=== PATIENT | female | born 1960 | race Two or more races ===

== ENCOUNTER 2020-10-27 14:40 | Outpatient (CLI) | payer OTHER | END 2020-10-27 14:41 | disposition home or self-care (01) | LOC: MAMO-SONO 14:40 | PROVIDERS: ATTEND Obstetrics & Gynecology Gynecology | DX: N64.59 Other signs and symptoms in breast (principal); Z12.31 Encounter for screening mammogram for malignant neoplasm of breast; Z87.898 Personal history of other specified conditions; N86 Erosion and ectropion of cervix uteri; N64.4 Mastodynia ==

== ENCOUNTER 2021-01-03 14:43 | Outpatient (CLI) | payer OTHER | END 2021-01-03 14:48 | disposition home or self-care (01) | LOC: NUCLEAR 14:43 | PROVIDERS: ATTEND Obstetrics & Gynecology Gynecology | DX: M81.0 Age-related osteoporosis without current pathological fracture (principal); M89.9 Disorder of bone, unspecified ==

== ENCOUNTER → 2021-01-03 | Outpatient (CLI) | payer OTHER | END | disposition home or self-care (01) | LOC: NUCLEAR 14:00 → RAD 14:11 | PROVIDERS: ATTEND Obstetrics & Gynecology Gynecology | DX: R07.89 Other chest pain (principal) ==

== ENCOUNTER 2021-04-26 13:47 | Outpatient (CLI) | payer OTHER | END 2021-04-26 13:55 | disposition home or self-care (01) | LOC: RAD 13:47 | PROVIDERS: ATTEND Obstetrics & Gynecology Gynecology | DX: R07.89 Other chest pain (principal); E04.1 Nontoxic single thyroid nodule ==

== ENCOUNTER 2021-08-08 11:55 | Outpatient (CLI) | payer OTHER | END 2021-08-08 11:56 | disposition home or self-care (01) | LOC: RAD 11:55 | DX: M65.232 Calcific tendinitis, left forearm (principal); R22.32 Localized swelling, mass and lump, left upper limb; M54.50 Low back pain, unspecified; M17.0 Bilateral primary osteoarthritis of knee ==

== ENCOUNTER 2021-08-21 13:45 | Outpatient (CLI) | payer OTHER | END 2021-08-21 13:47 | disposition home or self-care (01) | LOC: MRI 13:45 | PROVIDERS: ATTEND Psychiatry & Neurology Neurology | DX: R42 Dizziness and giddiness (principal) | CPT/HCPCS: 70551 ==

== ENCOUNTER 2021-11-22 12:12 | Outpatient (CLI) | payer OTHER | END 2021-11-27 15:06 | disposition home or self-care (01) | LOC: MRI 12:12 | PROVIDERS: ATTEND Obstetrics & Gynecology Gynecology | DX: Z12.31 Encounter for screening mammogram for malignant neoplasm of breast (principal); N64.4 Mastodynia ==

== ENCOUNTER 2022-01-15 08:06 | Outpatient (CLI) | payer OTHER | END 2022-01-15 09:00 | disposition home or self-care (01) | LOC: RAD 08:06 | PROVIDERS: ATTEND Obstetrics & Gynecology Gynecology | DX: R07.9 Chest pain, unspecified (principal) ==

== ENCOUNTER 2022-05-08 12:20 | Outpatient (CLI) | payer OTHER | END 2022-05-08 13:00 | disposition home or self-care (01) | LOC: RAD 12:20 | PROVIDERS: ATTEND Obstetrics & Gynecology Gynecology | DX: R07.9 Chest pain, unspecified (principal) ==

== ENCOUNTER 2022-07-02 14:00 | Outpatient (CLI) | payer OTHER | END 2022-07-02 14:05 | disposition home or self-care (01) | LOC: SONOGRAMA 14:00 | PROVIDERS: ATTEND Obstetrics & Gynecology Gynecology | DX: R10.2 Pelvic and perineal pain (principal) ==

== ENCOUNTER → 2022-07-26 | Outpatient (CLI) | payer OTHER | END | disposition home or self-care (01) | LOC: SONOGRAMA 14:13 | PROVIDERS: ATTEND Obstetrics & Gynecology Gynecology | DX: E04.1 Nontoxic single thyroid nodule (principal) ==

== ENCOUNTER 2022-11-27 12:58 | Outpatient (CLI) | payer OTHER | END 2022-11-29 11:37 | disposition home or self-care (01) | LOC: MAMO-SONO 12:58 | PROVIDERS: ATTEND Obstetrics & Gynecology Gynecology | DX: N64.59 Other signs and symptoms in breast (principal); N63.0 Unspecified lump in unspecified breast; Z12.31 Encounter for screening mammogram for malignant neoplasm of breast ==

== ENCOUNTER → 2023-03-26 13:39 | Outpatient (CLI) | payer OTHER | END | disposition home or self-care (01) | LOC: NUCLEAR 13:39 | PROVIDERS: ATTEND Obstetrics & Gynecology Gynecology | DX: M81.0 Age-related osteoporosis without current pathological fracture (principal); M89.9 Disorder of bone, unspecified ==

== ENCOUNTER 2023-05-09 14:05 | Outpatient (CLI) | payer OTHER | END 2023-05-09 14:30 | disposition home or self-care (01) | LOC: SONOGRAMA 14:05 | PROVIDERS: ATTEND Obstetrics & Gynecology Gynecology | DX: R07.9 Chest pain, unspecified (principal); E04.1 Nontoxic single thyroid nodule ==

== ENCOUNTER 2023-10-08 13:29 | Outpatient (CLI) | payer OTHER | END 2023-10-08 14:00 | disposition home or self-care (01) | LOC: SONOGRAMA 13:29 | PROVIDERS: ATTEND Obstetrics & Gynecology Gynecology | DX: R10.2 Pelvic and perineal pain (principal) ==

== ENCOUNTER → 2024-01-06 | Outpatient (CLI) | payer OTHER | END | disposition home or self-care (01) | LOC: MAMO-SONO 10:14 | PROVIDERS: ATTEND Obstetrics & Gynecology Gynecology | DX: R07.9 Chest pain, unspecified (principal); S69.91XA Unspecified injury of right wrist, hand and finger(s), initial encounter; N63.0 Unspecified lump in unspecified breast; N64.4 Mastodynia; N64.59 Other signs and symptoms in breast; Z12.31 Encounter for screening mammogram for malignant neoplasm of breast ==

== ENCOUNTER 2024-05-26 09:43 | Outpatient (CLI) | payer OTHER | END 2024-05-26 09:47 | disposition home or self-care (01) | LOC: SONOGRAMA 09:43 | PROVIDERS: ATTEND Obstetrics & Gynecology Gynecology | DX: E04.1 Nontoxic single thyroid nodule (principal) ==

== ENCOUNTER 2024-08-11 08:55 | Outpatient (CLI) | payer OTHER | END 2024-08-11 09:14 | disposition home or self-care (01) | LOC: TOM 08:55 | PROVIDERS: ATTEND Internal Medicine Cardiovascular Disease | DX: K62.5 Hemorrhage of anus and rectum (principal) ==

== ENCOUNTER 2024-10-13 09:42 | Outpatient (CLI) | payer OTHER | END 2024-10-13 09:46 | disposition home or self-care (01) | LOC: SONOGRAMA 09:42 | PROVIDERS: ATTEND Orthopaedic Surgery | DX: R10.2 Pelvic and perineal pain (principal); M75.52 Bursitis of left shoulder ==

== ENCOUNTER 2024-12-07 09:52 | Outpatient (CLI) | payer OTHER | END 2024-12-07 10:01 | disposition home or self-care (01) | LOC: SONOGRAMA 09:52 | DX: R31.9 Hematuria, unspecified (principal) ==

== ENCOUNTER → 2025-01-11 | Outpatient (CLI) | payer OTHER | END | disposition home or self-care (01) | LOC: MAMO-SONO 09:46 | PROVIDERS: ATTEND Obstetrics & Gynecology Gynecology | DX: N63.0 Unspecified lump in unspecified breast (principal); N64.59 Other signs and symptoms in breast; Z12.31 Encounter for screening mammogram for malignant neoplasm of breast ==

== ENCOUNTER → 2025-03-29 10:01 | Outpatient (CLI) | payer OTHER | END | disposition home or self-care (01) | LOC: NUCLEAR 10:01 | PROVIDERS: ATTEND Obstetrics & Gynecology Gynecology | DX: M81.0 Age-related osteoporosis without current pathological fracture (principal) ==